=== PATIENT | female | born 1985 | race Caucasian/White ===

== ENCOUNTER → 2021-08-04 11:10 | Outpatient (CLI) | payer OTHER, SELFPAY ==
[2021-08-11 17:08] LABS: HPV Reflexed? NOT INDICATED
== END ==
PROVIDERS: PCP Family Medicine; Visit Provider Obstetrics & Gynecology
DX: Z12.4 Encounter for screening for malignant neoplasm of cervix (principal)
CPT/HCPCS: 88175; G0145